=== PATIENT | female | born 1960 | race African-American/Black ===

== ENCOUNTER 2021-01-21 21:56 | Emergency (ER) | payer OTHER ==
[~2021-01-21] VITALS: Ht 170.2 cm; Wt 69.0 kg
[2021-01-21] MEDS ORDERED: HYDROCODONE/ACETAMINOPHEN 5/325MG TABLET PO ONE (22:45)
[2021-01-21] MEDS ORDERED: CLONIDINE 0.2MG TABLET PO ONE (22:45)
[2021-01-21 22:57] LABS: BASOPHILS % 0.4 % (0.0-2.0); EOSINOPHILS % 0.6 % (0.0-5.0); HEMATOCRIT. 38.4 % (36.0-48.0); HEMOGLOBIN. 13.3 g/dL (12.0-16.0); LYMPHOCYTES % 28.1 % (20.0-50.0); MEAN CORPUSCULAR HEMOGLOBIN 27.3 pg (28.0-32.0); MEAN CORPUSCULAR VOLUME 78.7 fL (81.0-99.0); MEAN PLATELET VOLUME 8.4 fl (7.4-10.4); MONOCYTES % 9.5 % (2.0-8.0); NEUTROPHILS % 61.4 % (40.0-76.0); PLATELET 165 x1000/uL (130-400); RED BLOOD CELL COUNT 4.88 mill/uL (4.2-5.4); RED CELL DISTRIBUTION WIDTH 13.1 % (11.6-14.6)
[2021-01-21 23:02] LABS: CHLORIDE 109 mEq/L (98-107)
[2021-01-22] MEDS ORDERED: HYDRALAZINE 20MG/ML VIAL IV ONE (00:30)
[2021-01-22] MEDS ORDERED: ONDANSETRON 4MG ODT PO ONE (00:45)
[2021-01-22 03:45] VITALS: BP 152/87
== END 2021-01-22 04:10 | disposition home or self-care (01) ==
LOC: ER 21:56
DX: I10 Essential (primary) hypertension (principal); R51.9 Headache, unspecified; M32.9 Systemic lupus erythematosus, unspecified; Z88.2 Allergy status to sulfonamides
CPT/HCPCS: 36415; 70450; 71045; 80053; 84484; 85025; 93005; 99285; Q0162

== ENCOUNTER 2022-03-09 04:40 | Emergency (ER) | payer OTHER ==
[~2022-03-09] VITALS: Ht 170.2 cm; Wt 67.5 kg
[2022-03-09] MEDS ORDERED: ACETAMINOPHEN 500MG TABLET PO ONE (05:30)
[2022-03-09] MEDS ORDERED: KETOROLAC 30MG/ML VIAL IV STA (06:36)
[2022-03-09] MEDS ORDERED: METOCLOPRAMIDE HCL 10MG/2ML VIAL IV ONE (06:45)
[2022-03-09] MEDS ORDERED: SODIUM CHLORIDE 0.9% 1,000 ML IV ONE (06:45)
[2022-03-09 07:19] VITALS: BP 148/92
[2022-03-09] MEDS ORDERED: IBUP-2028 PO (09:41)
== END 2022-03-09 10:03 | disposition home or self-care (01) ==
LOC: ER 05:23
DX: R51.9 Headache, unspecified (principal); I10 Essential (primary) hypertension; Z88.2 Allergy status to sulfonamides; Z20.822 Contact with and (suspected) exposure to COVID-19
CPT/HCPCS: 87426; 96361; 96374; 96375; 99284; C9803; J1885; J2765; J7030

== ENCOUNTER 2025-04-09 11:57 | Inpatient (IN) | payer OTHER ==
[~2025-04-09] VITALS: Ht 170.2 cm; Wt 68.0 kg
[~2025-04-09 11:57] MED LIST: IBUP-2028 PO
[2025-04-09 12:13] VITALS: O2SAT 99
[2025-04-09 12:47] LABS: BASOPHILS % 0.4 % (0.0-2.0); EOSINOPHILS % 0.5 % (0.0-5.0); HEMATOCRIT. 41.4 % (36.0-48.0); HEMOGLOBIN. 14.0 g/dL (12.0-16.0); LYMPHOCYTES % 24.2 % (20.0-50.0); MEAN PLATELET VOLUME 8.3 fl (7.4-10.4); MONOCYTES % 11.7 % (2.0-8.0); NEUTROPHILS % 63.2 % (40.0-76.0); PLATELET 188 x1000/uL (130-400); RED BLOOD CELL COUNT 5.22 mill/uL (4.2-5.4); RED CELL DISTRIBUTION WIDTH 13.1 % (11.6-14.6)
[2025-04-09 13:01] LABS: CREATININE 0.9 mg/dL (0.6-1.0); UREA NITROGEN BLOOD 10 mg/dL (9-23)
[2025-04-09 14:01] LABS: PROTEIN TOTAL 8.1 g/dL (6.0-8.3)
[2025-04-09 14:03] LABS: ASPARTATE AMINOTRANSFERASE 32 IU/L (<34); BILIRUBIN DIRECT 0.4 mg/dL (<=3.0); BILIRUBIN TOTAL 0.9 mg/dL (0.1-1.0)
[2025-04-09 15:47] LABS: CLARITY URINE CLEAR (CLEAR); GLUCOSE URINE NEGATIVE (NEGATIVE); KETONES URINE TRACE (NEGATIVE); LEUKOCYTE ESTERASE URINE TRACE (NEGATIVE); NITRITE URINE NEGATIVE (NEGATIVE); OCCULT BLOOD URINE NEGATIVE (NEGATIVE); PH URINE 6.5 (4.5-8.0); PROTEIN URINE NEGATIVE (NEGATIVE); SPECIFIC GRAVITY URINE 1.009 (1.005-1.030); UROBILINOGEN URINE 1.0 E.U./dL (0.2-1.0)
[2025-04-09] MEDS ORDERED: ONDANSETRON HCL 4MG/2ML INJ IV PRN (16:15)
[2025-04-09] MEDS ORDERED: DOCUSATE SODIUM 100MG CAPSULE PO PRN (16:15)
[2025-04-09] MEDS ORDERED: GUAIFENESIN 200MG/10ML SUGAR FREE UDC PO PRN (16:15)
[2025-04-09] MEDS ORDERED: MAGNESIUM/ALUMINUM HYDROXIDE/SIMETHICONE 30ML UDC PO PRN (16:15)
[2025-04-09] MEDS ORDERED: ACETAMINOPHEN 325MG TABLET PO PRN ×2 (16:15)
[2025-04-09] MEDS ORDERED: IPRATROPIUM/ALBUTEROL 0.5-3(2.5)MG/3ML NEB HHN PRN (16:15)
[2025-04-09 16:58] LABS: TROPONIN I HIGH SENSITIVITY < 4 ng/L (3.0-34)
[2025-04-09] MEDS: LOSARTAN 100 MG TABLET PO SCH (17:02)
[2025-04-09] MEDS: METOPROLOL SUCCINATE 50MG ER TABLET PO SCH (17:02)
[2025-04-09] MEDS: KCL 20MEQ/100ML PREMIX 100 ML IV NR (17:03)
[2025-04-09 17:15] LABS: COLOR URINE STRAW (YELLOW)
[2025-04-09 17:16] LABS: WBC URINE 0-2 /hpf (0-2)
[2025-04-09 17:17] LABS: BACTERIA URINE NONE SEEN; RBC URINE NONE SEEN /hpf (0-2); SQUAMOUS EPITHELIAL CELL URINE RARE /lpf (RARE/1+)
[2025-04-09] MEDS: CLONIDINE 0.1MG TABLET PO PRN (17:49)
[2025-04-09] MEDS ORDERED: HYDRALAZINE 20MG/ML VIAL IV PRN (19:00)
[2025-04-09 19:03] VITALS: BP 172/97; PULSE 89; RESP 17; TEMP 36.2512
[2025-04-09 20:00] VITALS: BP 136/90; PULSE 61; RESP 17; TEMP 36.6; O2SAT 100
[2025-04-09 21:27] LABS: *AMPHETAMINES SCREEN URINE NEGATIVE (NEGATIVE); *BARBITURATES SCREEN URINE NEGATIVE (NEGATIVE); *BENZODIAZEPINES SCREEN URINE NEGATIVE (NEGATIVE); *COCAINE SCREEN URINE NEGATIVE (NEGATIVE); METHADONE URINE SCREEN NEGATIVE (NEGATIVE); OPIATES URINE SCREEN NEGATIVE (NEGATIVE); PHENCYCLIDINE URINE SCREEN NEGATIVE (NEGATIVE)
[2025-04-09 21:28] LABS: CANNABINOID URINE SCREEN NEGATIVE (NEGATIVE); ECSTASY MDMA SCREEN URINE NEGATIVE (NEGATIVE)
[2025-04-10] VITALS: BP 122/80; PULSE 65; RESP 16; TEMP 36.4; O2SAT 93
[2025-04-10 04:00] VITALS: PULSE 55; RESP 17; TEMP 36.1; O2SAT 98
[2025-04-10 06:48] LABS: BASOPHILS % 0.5 % (0.0-2.0); EOSINOPHILS % 1.6 % (0.0-5.0); HEMATOCRIT. 39.3 % (36.0-48.0); HEMOGLOBIN. 12.9 g/dL (12.0-16.0); LYMPHOCYTES % 28.8 % (20.0-50.0); MEAN PLATELET VOLUME 8.7 fl (7.4-10.4); MONOCYTES % 13.3 % (2.0-8.0); NEUTROPHILS % 55.8 % (40.0-76.0); PLATELET 182 x1000/uL (130-400); RED BLOOD CELL COUNT 4.89 mill/uL (4.2-5.4); RED CELL DISTRIBUTION WIDTH 13.3 % (11.6-14.6)
[2025-04-10 07:04] LABS: TRIGLYCERIDE 84 mg/dL (0-150)
[2025-04-10 07:05] LABS: CREATININE 1.3 mg/dL (0.6-1.0)
[2025-04-10 07:06] LABS: LDL CHOLESTEROL 131 mg/dL (5-100); PROTEIN TOTAL 7.1 g/dL (6.0-8.3); UREA NITROGEN BLOOD 14 mg/dL (9-23)
[2025-04-10 07:07] LABS: ASPARTATE AMINOTRANSFERASE 27 IU/L (<34)
[2025-04-10 07:08] LABS: BILIRUBIN DIRECT 0.3 mg/dL (<=3.0); BILIRUBIN TOTAL 0.9 mg/dL (0.1-1.0)
[2025-04-10 07:12] LABS: T4 FREE 1.36 ng/dL (0.89-1.76)
[2025-04-10 07:43] LABS: HEPATITIS C AB NON REACTIVE (Neg) (Negative)
[2025-04-10 08:00] VITALS: BP 130/74; PULSE 66; RESP 18; TEMP 36.6; O2SAT 100
[2025-04-10] MEDS: AMLODIPINE 10MG TABLET PO SCH (09:33)
[2025-04-10 12:00] VITALS: BP 124/81; PULSE 58; RESP 18; TEMP 36.4; O2SAT 96
[2025-04-10 16:00] VITALS: BP 128/81; PULSE 60; RESP 19; TEMP 36.4; O2SAT 96
[2025-04-10 19:05] LABS: CREATININE 1.0 mg/dL (0.6-1.0); UREA NITROGEN BLOOD 15 mg/dL (9-23)
[2025-04-10 20:00] VITALS: BP 142/87; PULSE 64; RESP 16; TEMP 36.2; O2SAT 95
[2025-04-11] VITALS: BP 124/80; PULSE 63; RESP 16; TEMP 36.2; O2SAT 96
[2025-04-11 04:00] VITALS: BP 123/64; PULSE 56; RESP 16; TEMP 36.2; O2SAT 96
[2025-04-11 07:52] LABS: BASOPHILS % 0.4 % (0.0-2.0); EOSINOPHILS % 1.5 % (0.0-5.0); HEMATOCRIT. 39.5 % (36.0-48.0); HEMOGLOBIN. 13.5 g/dL (12.0-16.0); LYMPHOCYTES % 26.7 % (20.0-50.0); MEAN PLATELET VOLUME 8.7 fl (7.4-10.4); MONOCYTES % 14.7 % (2.0-8.0); NEUTROPHILS % 56.7 % (40.0-76.0); PLATELET 172 x1000/uL (130-400); RED BLOOD CELL COUNT 4.96 mill/uL (4.2-5.4); RED CELL DISTRIBUTION WIDTH 13.0 % (11.6-14.6)
[2025-04-11 07:59] LABS: CREATININE 1.1 mg/dL (0.6-1.0); UREA NITROGEN BLOOD 14 mg/dL (9-23)
[2025-04-11 08:00] VITALS: BP 141/96; PULSE 70; RESP 16; TEMP 36.8; O2SAT 96
[2025-04-11 08:01] LABS: PHOSPHORUS 3.7 mg/dL (2.5-4.9)
[2025-04-11] MEDS: METOPROLOL SUCCINATE 25MG ER TABLET PO SCH (09:19)
[2025-04-11] MEDS ORDERED: LOSA100T33 PO (11:23)
[2025-04-11] MEDS ORDERED: AMLO10TA80 PO (11:23)
[2025-04-11] MEDS ORDERED: METO-396 PO (11:23)
[2025-04-11 12:00] VITALS: BP 145/93; PULSE 75; RESP 16; TEMP 36.7; O2SAT 96
[2025-04-11 14:58] VITALS: BP 146/90; PULSE 76; RESP 18; TEMP 98.3
[2025-04-11 16:00] VITALS: BP 146/90; PULSE 67; RESP 16; TEMP 36.8; O2SAT 98
== END 2025-04-11 16:20 | disposition home or self-care (01) | DRG 641 ==
LOC: ER 11:57 → 5WST 15:36 → EDBEDREQ 15:44
PROVIDERS: ADMIT Internal Medicine; ATTEND Internal Medicine
DX: E86.0 Dehydration (principal); N17.9 Acute kidney failure, unspecified; I10 Essential (primary) hypertension; E87.6 Hypokalemia
CPT/HCPCS: 36415; 71045; 80048; 80061; 80076; 80305; 81003; 82962; 83735; 83880; 84100; 84439; 84443; 84484; 85025; 86705; 87340; 93005; 99285; J3480